=== PATIENT | male | born 1945 | race Caucasian/White ===

== ENCOUNTER 2020-05-15 10:29 | Outpatient (CLI) | payer MEDICARE, SELFPAY | END 2020-05-15 10:30 | disposition home or self-care (01) | LOC: ANHCOVIDVC 10:29 | PROVIDERS: PCP Family Medicine Adolescent Medicine | DX: Z23 Encounter for immunization (principal) | CPT/HCPCS: 0001A; 91300 ==

== ENCOUNTER 2020-06-05 10:22 | Outpatient (CLI) | payer MEDICARE, SELFPAY | END 2020-06-05 10:23 | disposition home or self-care (01) | LOC: ANHCOVIDVC 10:22 | PROVIDERS: PCP Family Medicine Adolescent Medicine | DX: Z23 Encounter for immunization (principal) | CPT/HCPCS: 0002A; 91300 ==

== ENCOUNTER → 2020-06-06 10:24 | Outpatient (CLI) | payer MEDICARE, SELFPAY ==
--- NOTE | ~2020-06-06 | XR_ITS ---
EXAMINATION: XR chest 2V 06/06/2020 10:58 INDICATION: History of smoking and cough PROCEDURE: 2 view chest COMPARISON: Comparison to multiple prior studies sequentially, with oldest reviewed study dated 09/08. FINDINGS: The lungs are clear. The cardiomediastinal silhouette is within normal limits. There are no pleural effusions. There is no pneumothorax suspected. IMPRESSION: 1: NO ACUTE CARDIOPULMONARY DISEASE. Reviewed, dictated and finalized at location A.
== END ==
PROVIDERS: PCP Family Medicine Adolescent Medicine; Visit Provider Family Medicine Adolescent Medicine
DX: R05 Cough (principal); Z87.891 Personal history of nicotine dependence
CPT/HCPCS: 71046

== ENCOUNTER 2021-12-26 12:32 | Outpatient (CLI) | payer MEDICARE, SELFPAY ==
[2021-12-26 13:19] LABS: CRP 0.6 mg/dL (<1.0); Rheumatoid Factor < 8.6 IU/ML (<12); Uric Acid 5.3 mg/dL (3.5-8.5)
[2021-12-26 13:37] LABS: Erythrocyte Sedimentation Rate 21 mm/hr (0-20)
== END 2021-12-26 12:33 | disposition home or self-care (01) ==
LOC: ANHLAB 12:34
PROVIDERS: PCP Family Medicine Adolescent Medicine; Visit Provider Orthopaedic Surgery
DX: M25.461 Effusion, right knee (principal); M25.561 Pain in right knee
CPT/HCPCS: 36415; 84550; 85652; 86038; 86140; 86430

== ENCOUNTER 2022-01-25 13:31 | Emergency (ER) | payer MEDICARE, SELFPAY ==
--- NOTE | ~2022-01-25 | XR_ITS ---
EXAMINATION: XR knee RT 2V DATE: 01/25/2022 13:54 INDICATION: Right knee injury. TECHNIQUE: 2 views of right knee were obtained. COMPARISON: Right knee radiographs 11/19/2013 FINDINGS: Bone alignment is normal. No fracture. There is mild osteoarthritis of patellofemoral sabino rtment. There is a moderate-sized knee joint effusion. Again seen are small pieces of shrapnel latera l to the knee. IMPRESSION: 1. Mild right knee osteoarthritis. 2. Moderate-sized right knee joint effusion. Reviewed, dictated and finalized at location A. [employer]
[2022-01-25 13:33] VITALS: BP 163/50; PULSE 54; RESP 18; TEMP 36.5; O2SAT 98
[2022-01-25] MEDS: ACETAMINOPHEN 500 MG TABLET 1000 MG PO (14:52)
[2022-01-25] MEDS: LIDOCAINE 5% PATCH 1 PATCH TRANSDERM (15:10)
--- NOTE | 2022-01-25 15:15 | ED.FALL ---
HPI - Fall General Chief Complaint: Fall Stated Complaint: right knee pain, fall Time Seen by Provider: 01/25/22 13:45 History of Present Illness HPI Narrative: This is a 76-year-old male with past medical history of hypertension hyperlipidemia, who presents to the emergency department complaining of right knee pain after a fall 2 days ago. Patient states he was previously diagnosed with pseudogout in the right knee, was climbing a ladder, when he reached the second rung it gave way and he fell straight down approximately 2 ft. He states he impacted the right knee but denies head injury or loss of consciousness. He complains of 5 out of 10, dull knee pain with associated with some swelling. He initially used ibuprofen with some relief but on repeat this dose this morning was not helpful. He has no other complaints today. Related Data Home Medications Medication Instructions Recorded Confirmed calcium carbonate 600 mg calcium 600 mg PO DAILY 09/24/21 09/24/21 (1,500 mg) tablet (Calcium) coenzyme Q10 75 mg capsule (Ultra 75 mg PO DAILY 09/24/21 09/24/21 CoQ10) garlic 1,000 mg capsule 1,000 mg PO DAILY 09/24/21 09/24/21 lactobacillus combination no.4 3 3,000 mmu cells PO DAILY 09/24/21 09/24/21 billion cell capsule (Probiotic) omega-3 fatty acids-fish oil 360 1 cap PO DAILY 09/24/21 09/24/21 mg-1,200 mg capsule (Fish Oil) vit C 250 mg-E 90 mg-zinc 40 1 tablet PO QAM AND QPM 09/24/21 09/24/21 mg-copper 1 [id number] chew tablet (PreserVision AREDS-2) Allergies Allergy/AdvReac Type Severity Reaction Status Date / Time No Known Allergies Allergy Unknown Verified 09/24/21 11:26 Review of Systems Review of Systems: CONSTITUTIONAL: Denies fever, chills, or sweats. CARDIOVASCULAR: Denies chest pain, palpitations, or edema. RESPIRATORY: Denies cough or dyspnea. GASTROINTESTINAL: Denies abdominal pain, nausea, vomiting, or diarrhea. GENITOURINARY: Denies dysuria or hematuria. SKIN: Denies rash or itching. MUSCULOSKELETAL: Right knee pain denies back pain, or myalgia. NEUROLOGIC: Denies headache, numbness, dizziness, or weakness. PSYCHIATRIC: Denies anxiety or depression. PMFSH Past Medical History Medical History Colon cancer screening Cologuard negative 06/05 Surgical History Surgical History History of back surgery Hx of carpal tunnel repair Family History Family History Father Diabetes mellitus Malignant neoplasm of prostate Social History Social History Smoking status: Current some day smoker Tobacco type: pipe Second hand tobacco smoke exposure: No Alcohol intake: never Substance use: never Substance use type: does not use Gender identity (if verbalized by the patient): Male Sexual Orientation (if Verbalized by the Patient): Straight or Heterosexual Spiritual care concerns: No Agree to blood products: Yes Exam Narrative: GENERAL: Well-developed, well-nourished, and in no acute distress. HEAD: Normocephalic, atraumatic. EYES: PERRLA and EOMI. ENT: Nares clear, no rhinorrhea or epistaxis. Mucous membranes moist. Oropharynx without tonsillar hypertrophy exudate or other lesions. NECK: Supple. No adenopathy or masses. No carotid bruits or JVD CHEST: Clear to auscultation. No respiratory distress. No wheezes rales or rhonchi HEART: Regular rate and rhythm. No murmur heard. Normal peripheral pulses. ABDOMEN: Soft, nontender, nondistended, normal active bowel sounds. EXTREMITIES: Mild swelling of the right knee at the superior aspect without ecchymosis, range of motion somewhat limited by pain; normal range of motion of the left knee normal range of motion of the hip. No edema. SKIN: Warm, dry, no rash. NEURO: No focal deficits. Alert and orient
[2022-01-25 15:22] VITALS: TEMP 36.5
[2022-01-25 16:00] VITALS: BP 132/88; PULSE 86; RESP 16; O2SAT 97
== END 2022-01-25 16:50 | disposition home or self-care (01) ==
PROVIDERS: Emergency Provider Preventive Medicine Aerospace Medicine; PCP Family Medicine Adolescent Medicine
DX: S80.01XA Contusion of right knee, initial encounter (principal); I10 Essential (primary) hypertension; E78.5 Hyperlipidemia, unspecified; F17.290 Nicotine dependence, other tobacco product, uncomplicated; W11.XXXA Fall on and from ladder, initial encounter
CPT/HCPCS: 73560; 99283; A9270

== ENCOUNTER 2022-04-19 15:40 | Outpatient (NON) | payer MEDICARE, SELFPAY ==
[2022-04-19 16:43] LABS: Appearance Synovial Fluid Hazy (Clear); Color Synovial Fluid Yellow (Colorless); Lymphocytes Synovial Fluid 30 %; Macrophages Synovial Fluid 10 %; Neutrophils Synovial Fluid 60 % (0-25); Nucleated Cell Synovial Fluid 696 /uL (0-200); RBC Synovial Fluid 1132 /uL (0-0); Source Synovial Fluid Synovial fluid
[2022-04-19 17:07] LABS: Crystals Synovial Fluid None Seen (None Seen)
== END 2022-04-19 15:41 | disposition home or self-care (01) ==
PROVIDERS: PCP Family Medicine Adolescent Medicine; Visit Provider Orthopaedic Surgery
DX: M25.561 Pain in right knee (principal); M25.461 Effusion, right knee
CPT/HCPCS: 89051; 89060

== ENCOUNTER 2022-11-12 16:14 | Outpatient (CLI) | payer MEDICARE, SELFPAY ==
--- NOTE | ~2022-11-12 | XR_ITS ---
XR wrist RT min 3V DATE: 11/12/2022 16:39 INDICATION: Osteoarthritis TECHNIQUE: 4 views COMPARISON: 09/29/2012 right hand FINDINGS: Minimal chondrocalcinosis at the wrist joint. No fracture or dislocation, periosteal reaction or bone destruction is detected. IMPRESSION: Minimal chondrocalcinosis of the wrist joint Reviewed, dictated and finalized at location L.
== END 2022-11-12 16:15 | disposition home or self-care (01) ==
PROVIDERS: PCP Family Medicine Adolescent Medicine; Visit Provider Plastic Surgery
DX: M19.031 Primary osteoarthritis, right wrist (principal)
CPT/HCPCS: 73110

== ENCOUNTER → 2023-01-29 09:44 | Outpatient (CLI) | payer MEDICARE, SELFPAY ==
--- NOTE | ~2023-01-29 | XR_ITS ---
Clinical Indication: Cough PA and lateral views of the chest: Comparison: 06/06/2020 Findings: The lungs are clear, without evidence of focal consolidation or pleural effusion. Cardiome diastinal silhouette is within normal limits. Bones and soft tissues are unremarkable. Impression: Normal chest. Reviewed, dictated and finalized at [facility]. [employer] Impression: Normal chest.
== END ==
PROVIDERS: PCP Family Medicine Adolescent Medicine; Visit Provider Family Medicine Adolescent Medicine
DX: R05.3 Chronic cough (principal); F17.200 Nicotine dependence, unspecified, uncomplicated
CPT/HCPCS: 71046

== ENCOUNTER 2024-08-26 09:00 | Outpatient (CLI) | payer MEDICARE, SELFPAY ==
--- NOTE | ~2024-08-26 | XR_ITS ---
Clinical Indication: Cough PA and lateral views of the chest: Comparison: 01/29/2023 Findings: The lungs are clear, without evidence of focal consolidation or pleural effusion. Cardiome diastinal silhouette is within normal limits. Bones and soft tissues are unremarkable. Impression: Normal chest. Reviewed, dictated and finalized at location . Impression: Normal chest.
== END 2024-08-26 09:01 | disposition home or self-care (01) ==
LOC: MICIMG 09:01
PROVIDERS: PCP Family Medicine Adolescent Medicine; Visit Provider Family Medicine Adolescent Medicine
DX: R05.9 Cough, unspecified (principal)
CPT/HCPCS: 71046